=== PATIENT | male | born 1940 | race Caucasian/White ===

== ENCOUNTER → 2017-05-20 | Outpatient (CLI) | payer MEDICARE ==
[~2017-05-20] MED LIST: ASPIRIN81 MG PO; FLOMAX0.4 MG PO; ISOSORBIDE DINI30 MG PO; MAG-OX 400 TAB400 MG PO; PLAVIX 75 MG TA75 MG PO; PRAVASTATIN SOD40 MG PO; PRINIVIL20 MG PO; PROTONIX 40 MG40 M1 PO; VITAMIN B-121000 MCG PO; VITAMIN D 11000 UNIT PO; VITAMIN D1000 UNI1 PO
[2017-05-20 14:25] LABS: HEMOGLOBIN 10.8 gm/dl (14.0-17.5); WHITE BLOOD COUNT 7.7 K/UL (4.5-11.0)
[2017-05-20 14:34] LABS: BUN/CREATININE RATIO 31 (0-10)
== END ==
LOC: OPSV2 12:30
PROVIDERS: Orthopaedic Surgery
DX: Z01.810 Encounter for preprocedural cardiovascular examination (principal); Z01.812 Encounter for preprocedural laboratory examination; S42.202A Unspecified fracture of upper end of left humerus, initial encounter for closed fracture; Z86.73 Personal history of transient ischemic attack (TIA), and cerebral infarction without residual deficits
CPT/HCPCS: 36415; 80048; 81001; 85025; 85610; 85730; 86850; 86900; 86901

== ENCOUNTER → 2021-01-17 | Outpatient (CLI) | payer MEDICARE ==
[~2021-01-17] MED LIST changes: +AUGMENTIN 875-1 EACH PO; +FOLIC ACID 1 MG1 MG PO; +IMDUR ER TAB 3030 MG PO; +LOPRESSOR 25 MG25 MG PO; +NORCO 5-325 TA1 EACH PO; +PERCOCET 10-321 EACH PO; +PRAVASTATIN SOD20 MG PO; +THERAGRAN M TAB1 EA PO; +VITAMIN B-1 5050 MG PO; +VITAMIN B12 PO; +ZESTRIL 40 MG T40 MG PO
== END ==
LOC: KOH-I 09:18
DX: R05 Cough (principal); M54.5 Low back pain; M51.06 Intervertebral disc disorders with myelopathy, lumbar region
CPT/HCPCS: 71046; 72110

== ENCOUNTER → 2021-01-17 | Outpatient (CLI) | payer MEDICARE | LOC: EXRD 10:38 | DX: I65.23 Occlusion and stenosis of bilateral carotid arteries (principal) | CPT/HCPCS: 93880 ==

== ENCOUNTER → 2021-02-13 | Outpatient (CLI) | payer MEDICARE | LOC: CT 14:32 | DX: I65.21 Occlusion and stenosis of right carotid artery (principal); J43.2 Centrilobular emphysema; M47.812 Spondylosis without myelopathy or radiculopathy, cervical region | CPT/HCPCS: 70498; Q9967 ==

== ENCOUNTER → 2022-01-29 | Outpatient (CLI) | payer MEDICARE | LOC: US 09:25 | DX: I77.811 Abdominal aortic ectasia (principal) | CPT/HCPCS: 93979 ==